=== PATIENT | female | born 1975 | race Caucasian/White ===

== ENCOUNTER 2019-01-11 09:39 | Emergency (ER) | payer MEDICAID ==
[~2019-01-11] VITALS: Ht 177.8 cm; Wt 90.3 kg
[2019-01-11 09:43] VITALS: Ht 177.8 cm; Wt 90.3 kg
[2019-01-11 11:09] VITALS: BP 146/87
== END 2019-01-11 11:09 | disposition home or self-care (01) ==
LOC: ED 09:39
DX: L02.414 Cutaneous abscess of left upper limb (principal)
CPT/HCPCS: J2001; Q0092